=== PATIENT | female | born 1990 | race Caucasian/White ===

== ENCOUNTER 2018-03-08 07:00 | Inpatient (IN) | payer BC ==
[2018-03-08] MEDS ORDERED: Misoprostol 25 MCG (1/4 of 100 MCG) Tab ONE (07:26)
[2018-03-08] MEDS: Misoprostol 25 MCG (1/4 of 100 MCG) Tab VAG SCH ×3 (07:30→13:38)
[2018-03-08] MEDS ORDERED: Sodium Chloride 0.9% 10 ML Syringe FLUSH PRN (08:03)
[2018-03-08] MEDS ORDERED: Lidocaine 1% 50 ML MDV INJECT ONE (08:03)
[2018-03-08] MEDS ORDERED: Ondansetron 4 MG/2 ML SDV IVPUSH PRN (08:03)
[2018-03-08] MEDS ORDERED: Nalbuphine 20 MG/ML 1 ML Syringe IVPUSH PRN (08:03)
[2018-03-08] MEDS ORDERED: Lactated Ringers 1,000 ML IV SCH (08:15)
[2018-03-08] MEDS ORDERED: Oxytocin/Lactated Ringers 10 UNIT/1,000 ML BAG IV SCH ×2 (08:15)
--- NOTE | 2018-03-08 08:23 | PCM.LDHP ---
<Golden Millsen L - Last Filed: 03/08/18 07:58> L&D History of Present Illness - General Date of Service: 03/08/18 Admit Problem/Dx: Admission Diagnosis/Problem Admission Diagnosis/Problem Induction 03/08/18 07:58 Source of Information: Patient History Limitations: Reports: No Limitations - History of Present Illness Introduction:: 27 YO JAYLIN 03/15/2018 by LMP presents today for induction. Group B Strep at 36 wks GA POSITIVE. Rubella immune, Tdap given at 38 wks GA. HIV/HBV negative. No h/o MRSA or travel to zika-infested areas. U/S at 14 wks showed possible amniotic band that had apparently resolved by repeat U/S at 24 wks. H/ o at 38 wks GA, asthma. - Related Data Allergies/Adverse Reactions: Allergies Allergy/AdvReac Type Severity Reaction Status Date / Time cefaclor [From Ceclor] Allergy Itching Verified 05/20/16 17:08 [employer] clarithromycin [From Biaxin] Allergy Itching Verified 05/20/16 17:08 [employer] erythromycin base Allergy Itching Verified 05/20/16 17:08 [employer] Sulfa (Sulfonamide Allergy Itching Verified 05/20/16 17:08 [employer] Antibiotics) Past Medical History Respiratory History: Reports: Asthma (active, uses inhaler BID, has rescue MDI and also uses Nebulizer PRN) : 2 Para: 1 LMP (Approximate): Endocrine/Metabolic History: Reports: Diabetes, Gestational - Infectious Disease History 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 - Past Surgical History HEENT Surgical History: Reports: Adenoidectomy, Oral Surgery, Tonsillectomy Social & Family History - Family History Cardiac: Reports: Prior Cardiac Arrest GI: Reports: Pancreatitis OBGYN: Reports: Oncologic: Reports: Other (See Below) Other Oncologic Family History: melanoma L&D Exam - Exam General: Alert, Oriented HEENT: Conjunctiva Clear, Hearing Intact, Mucosa Moist & [place], Nares Patent, Normal Nasal Septum, PERRLA Neck: Supple, Trachea Midline Lungs: Clear to Auscultation, Normal Respiratory Effort Cardiovascular: Regular Rate, Regular Rhythm GI/Abdominal Exam: Normal Bowel Sounds, Non-Tender, No Organomegaly, No Abnormal Bruit, No Mass, Pelvis Stable Genitourinary: Normal external exam, Normal bimanual exam Extremities: Normal Inspection, Normal Range of Motion, Non-Tender, No Pedal Edema, Normal Capillary Refill Skin: Warm, Dry, Intact <Karlo Liz - Last Filed: 03/08/18 08:50> L&D History of Present Illness - General Admit Problem/Dx: Patient Status Order with Admit Dx/Problem 03/08/18 07:09 Patient Status [ADT] Routine Admission Diagnosis/Problem Admission Diagnosis/Problem H&P Review of Systems - Review of Systems: Review Of Systems: See Below L&D Exam - Exam Exam: See Below - Mai Score Mai Score Cervix Position: Posterior Mai Score Consistency: Soft Mai Score Effacement: 0-30% Mai Score Dilation: Closed Mai Score Infant's Station: -3 Mai Score Total: 2 - Problem List (1) 39 weeks gestation of SNOMED Code(s): 96396589 ICD Code: Z3A.39 - 39 WEEKS GESTATION OF Status: Acute Current Visit: Yes (2) GBS carrier SNOMED Code(s): 4802602456231 ICD Code: Z22.330 - CARRIER OF GROUP B STREPTOCOCCUS Status: Acute Current Visit: Yes Problem List Initiated/Reviewed/Updated: No Orders Last 24hrs: Active Orders 24 hr Category Date Time Status Patient Status [ADT] Routine ADT 03/08/18 07:09 Active Activity as Tolerated [RC] PFP Care 03/08/18 08:03 Active Communication Order [RC] ASDIRECTED Care 03/08/18 08:03 Active Heart Tones [RC] ASDIRECTED Care 03/08/18 08:04 Active Non Stress Test [RC] PER UNIT ROUTINE Care 03/08/18 08:03 Active Notify Provider [RC] PFP Care 03/08/18 08:03 Active Notify Provider [RC] PRN Care 03/08/18 08:03 Active Peripheral IV Care [RC] . DIRECTED Care 03/08/18 08:04 Active Vital Signs [RC] PER UNIT ROUTINE Care 03/08/18 08:03 Active Regular Diet [DIET] Diet 03/08/18 Breakfast Active CBC WITH AUTO DIFF [HEME] Stat Lab 03/08/18 08:03 Ordered RAPID PLASMA REAGIN,RPR [CHEM] Routine Lab 03/08/18 08:03 Ordered Ampicillin 1 gm Med 03/08/18 12:30 Active Sodium Chloride 0.9% [Normal Saline] 100 ml IV Q4H Ampicillin 2 gm Med 03/08/18 08:30 Active Sodium Chloride 0.9% [Normal Saline] 100 ml IV ONETIME Lactated Ringers [Ringers, Lactated] 1,000 ml Med 03/08/18 08:15 Active IV ASDIRECTED Nalbuphine [Nubain] Med 03/08/18 08:03 Active 10 mg IVPUSH Q2H PRN Ondansetron [Zofran] Med 03/08/18 08:03 Active 4 mg IVPUSH Q4H PRN Oxytocin/Lactated Ringers [Pitocin in LR 10 Units/1,000 Med 03/08/18 08:15 Active ML] 10 unit in 1,000 ml IV .CONTINUOUS Oxytocin/Lactated Ringers [Pitocin in LR 10 Units/1,000 Med 03/08/18 08:15 Active ML] 10 unit in 1,000 ml IV TITRATE Sodium Chloride 0.9% [Saline Flush] Med 03/08/18 08:03 Active 10 ml FLUSH ASDIRECTED PRN miSOPROStol [Cytotec] Med 03/08/18 07:30 Active 25 mcg VAG Q3H Electronic Heart Tones Ext w TOCO [WOMSER] Ot 03/08/18 08:03 Ordered Routine Electronic Heart Tones Internal [WOMSER] Per Unit Ot 03/08/18 08:03 Ordered Routine Peripheral IV Insertion Adult [OM.PC] Routine Ot 03/08/18 08:03 Ordered Resuscitation Status Routine Resus Stat 03/08/18 08:03 Ordered Medication Orders Ampicillin Sodium 2 gm/ Sodium (Chloride) 100 mls @ 200 mls/hr IV ONETIME ONE Stop: 03/08/18 08:59 Last Admin: 03/08/18 08:40 Dose: 200 mls/hr Ampicillin Sodium 1 gm/ Sodium (Chloride) 100 mls @ 200 mls/hr IV Q4H JUANY Lactated Ringer's (Ringers, Lactated) 1,000 mls @ 100 mls/hr IV ASDIRECTED JUANY Last Admin: 03/08/18 08:40 Dose: 100 mls/hr Oxytocin/Lactated Ringer's (Pitocin In Lr 10 Units/1,000 Ml) 10 unit in 1,000 mls @ 500 mls/hr IV .CONTINUOUS JUANY; Protocol Oxytocin/Lactated Ringer's (Pitocin In Lr 10 Units/1,000 Ml) 10 unit in 1,000 mls @ 12 mls/hr IV TITRATE JUANY; Protocol Misoprostol (Cytotec) 25 mcg VAG Q3H JUANY Stop: 03/08/18 13:31 Last Admin: 03/08/18 07:30 Dose: 25 mcg Nalbuphine HCl (Nubain) 10 mg IVPUSH Q2H PRN PRN Reason: pain Ondansetron HCl (Zofran) 4 mg IVPUSH Q4H PRN PRN Reason: Nausea/Vomiting Sodium Chloride (Saline Flush) 10 ml FLUSH ASDIRECTED PRN PRN Reason: Keep Vein Open Assessment/Plan Comment:: Plan induction and delivery
[2018-03-08] MEDS ORDERED: Ampicillin 2 GM in Sodium Chloride 0.9% 100 ML IV ONE (08:30)
[2018-03-08] MEDS: Ampicillin 1 GM in Sodium Chloride 0.9% 100 ML IV SCH ×2 (12:24→16:45)
--- NOTE | 2018-03-08 12:34 | PCM.SN ---
- Free Text/Narrative Note: 03/08/2019 1230 cervix 1 cm, 60 %, soft, posterior, vertex -3 Cat I FHR, Had second Cytotec at 1030.
--- NOTE | 2018-03-08 14:45 | PCM.SN ---
- Free Text/Narrative Note: 1440 03/08/18 Cervix 2 cm, 60 % effaced, soft, posterior, Cat I FHR before and after amniotomy performed at 1440, clear fluid.
--- NOTE | 2018-03-08 18:23 | PCM.SN ---
- Free Text/Narrative Note: 1820 03/08/2018 Cervix 8 cm, 90%, soft, anterior, cephalic -1. Cat I FHR.
--- NOTE | 2018-03-08 19:24 | PCM.DEL ---
L & D Note - General Info Date of Service: 03/08/18 Mother's Due Date: 03/18/18 - Delivery Note Labor: Spontaneous, Augmented by ARM Cervical Ripening Method: Misoprostil (25 mcg q3h x3 total) Delivery Outcome: Livebirth (female liveborn at 1858 hrs.on Wednesdayunder no anesthesia over no episiotomy right occiput anterior Apgars 8/9 weight 3230 g/7 pounds 1.9 ounce) Delivery Method: Spontaneous Vaginal Delivery-Single Infant Delivery Mode: Spontaneous Presentation: Right Occiput Anterior (BOBBY) Nuchal Cord: None Prep: Povidone-Iodine (Betadine Anesthesia Type: None Episiotomy Type: None Laceration: None Placenta: Intact, Spontaneous (elivered at 1908 hrs. on Wednesday03/08/18 intact eccentric cord insertion discarded) Cord: 3 Vessels Estimated Blood Loss: 250 Resuscitation Needed: No : Suctioned, Bulb Syringe, Stimulated, Warmed, [place] Used, Warmer Used Provider: Karlo Liz Score 1 min: 8 Score 5 min: 9 - General Info Date of Service: 03/08/18 Functional Status: Reports: Pain Controlled - Review of Systems General: Reports: No Symptoms HEENT: Reports: No Symptoms Pulmonary: Reports: No Symptoms Cardiovascular: Reports: No Symptoms Gastrointestinal: Reports: No Symptoms Genitourinary: Reports: No Symptoms Musculoskeletal: Reports: No Symptoms Skin: Reports: No Symptoms Neurological: Reports: No Symptoms Psychiatric: Reports: No Symptoms - Patient Data Weight - Most Recent: 228 lb 4.8 oz I&O - Last 24 Hours: Intake & Output 03/08/18 03/08/18 03/08/18 06:59 14:59 22:59 Intake Total 240 Balance 240 Lab Results Last 24 Hours: Laboratory Results - last 24 hr 03/08/18 Range/Units 08:45 WBC 14.59 H (3.98-10.04) K/mm3 RBC 4.40 (3.98-5.22) M/mm3 Hgb 10.6 L (11.2-15.7) gm/L Hct 34.3 (34.1-44.9) % MCV 78.0 L (79.4-94.8) fl MCH 24.1 L (25.6-32.2) pg MCHC 30.9 L (32.2-35.5) g/dl RDW Std Deviation 40.9 (36.4-46.3) fL Plt Count 239 (182-369) K/mm3 MPV 11.5 (9.4-12.3) fl Neut % (Auto) 73.5 H (34.0-71.1) % Lymph % (Auto) 16.8 L (19.3-51.7) % [place] % (Auto) 6.9 (4.7-12.5) % Eos % (Auto) 2.0 (0.7-5.8) Baso % (Auto) 0.1 (0.1-1.2) % Neut # (Auto) 10.72 H (1.56-6.13) K/mm3 Lymph # (Auto) 2.45 (1.18-3.74) K/mm3 [place] # (Auto) 1.01 H (0.24-0.36) K/mm3 Eos # (Auto) 0.29 (0.04-0.36) K/mm3 Baso # (Auto) 0.02 (0.01-0.08) K/mm3 Med Orders - Current: Current Medications Ampicillin Sodium 1 gm/ Sodium (Chloride) 100 mls @ 200 mls/hr IV Q4H JUANY Last Admin: 03/08/18 16:45 Dose: 200 mls/hr Lactated Ringer's (Ringers, Lactated) 1,000 mls @ 100 mls/hr IV ASDIRECTED JUANY Last Admin: 03/08/18 08:40 Dose: 100 mls/hr Oxytocin/Lactated Ringer's (Pitocin In Lr 10 Units/1,000 Ml) 10 unit in 1,000 mls @ 500 mls/hr IV .CONTINUOUS JUANY; Protocol Oxytocin/Lactated Ringer's (Pitocin In Lr 10 Units/1,000 Ml) 10 unit in 1,000 mls @ 12 mls/hr IV TITRATE JUANY; Protocol Nalbuphine HCl (Nubain) 10 mg IVPUSH Q2H PRN PRN Reason: pain Last Admin: 03/08/18 16:43 Dose: 10 mg Ondansetron HCl (Zofran) 4 mg IVPUSH Q4H PRN PRN Reason: Nausea/Vomiting Sodium Chloride (Saline Flush) 10 ml FLUSH ASDIRECTED PRN PRN Reason: Keep Vein Open Discontinued Medications Ampicillin Sodium 2 gm/ Sodium (Chloride) 100 mls @ 200 mls/hr IV ONETIME ONE Stop: 03/08/18 08:59 Last Admin: 03/08/18 08:40 Dose: 200 mls/hr Lidocaine HCl (Xylocaine 1%) 50 ml INJECT ONETIME ONE Stop: 03/08/18 08:04 Misoprostol (Cytotec) Confirm Administered Dose 25 mcg .ROUTE .STK-MED ONE Stop: 03/08/18 07:27 Last Admin: 03/08/18 08:42 Dose: Not Given Misoprostol (Cytotec) 25 mcg VAG Q3H JUANY Stop: 03/08/18 13:31 Last Admin: 03/08/18 13:38 Dose: 25 mcg - Problem List & Annotations (1) 39 weeks gestation of SNOMED Code(s): 72201193 Code(s): Z3A.39 - 39 WEEKS GESTATION OF Status: Acute Current Visit: Yes (2) GBS carrier SNOMED Code(s): 5235727138198 Code(s): Z22.330 - CARRIER OF GROUP B STREPTOCOCCUS Status: Acute Current Visit: Yes (3) Normal delivery at term SNOMED Code(s): 82257001 Code(s): O80 - ENCOUNTER FOR FULL-TERM UNCOMPLICATED DELIVERY Status: Acute Current Visit: Yes - Problem List Review Problem List Initiated/Reviewed/Updated: No - My Orders Last 24 Hours: My Active Orders 03/08/18 07:09 Patient Status [ADT] Routine 03/08/18 08:03 Activity as Tolerated [RC] PFP Communication Order [RC] ASDIRECTED Notify Provider [RC] PFP Notify Provider [RC] PRN Vital Signs [RC] PER UNIT ROUTINE Nalbuphine [Nubain] 10 mg IVPUSH Q2H PRN Ondansetron [Zofran] 4 mg IVPUSH Q4H PRN Sodium Chloride 0.9% [Saline Flush] 10 ml FLUSH ASDIRECTED PRN Electronic Heart Tones Ext w TOCO [WOMSER] Routine Electronic Heart Tones Internal [WOMSER] Per Unit Routine Peripheral IV Insertion Adult [OM.PC] Routine Resuscitation Status Routine 03/08/18 08:04 Heart Tones [RC] ASDIRECTED Peripheral IV Care [RC] . DIRECTED 03/08/18 08:15 Lactated Ringers [Ringers, Lactated] 1,000 ml IV ASDIRECTED Oxytocin/Lactated Ringers [Pitocin in LR 10 Units/1,000 ML] 10 unit in 1,000 ml IV .CONTINUOUS Oxytocin/Lactated Ringers [Pitocin in LR 10 Units/1,000 ML] 10 unit in 1,000 ml IV TITRATE 03/08/18 08:45 RAPID PLASMA REAGIN,RPR [CHEM] Routine 03/08/18 12:30 Ampicillin 1 gm Sodium Chloride 0.9% [Normal Saline] 100 ml IV Q4H 03/08/18 Breakfast Regular Diet [DIET] - Plan Plan:: Plan induction and delivery
[2018-03-08] MEDS ORDERED: Docusate Sodium 100 MG Cap PO PRN (19:33)
[2018-03-08] MEDS ORDERED: Acetaminophen 325 MG Tab PO PRN (19:33)
[2018-03-08] MEDS ORDERED: Benzocaine/Menthol 20%-0.5% Spray 56 GM Canister TOP PRN (19:33)
[2018-03-08] MEDS ORDERED: Witch Hazel Medicated Pads 100/Jar TOP PRN (19:33)
[2018-03-08] MEDS ORDERED: Lanolin 100% Cream 7 GM Tube TOP PRN (19:33)
[2018-03-08] MEDS: Ibuprofen 600 MG Tab PO PRN (21:36)
[2018-03-09] MEDS: Ibuprofen 600 MG Tab PO PRN ×2 (08:14→22:04)
--- NOTE | 2018-03-09 09:23 | PCM.SN ---
- Free Text/Narrative Note: Afebrile. Chest clear. Normal heart sounds. Uterus involuting normally. Abdomen soft. No heavy vaginal bleeding. No leg cramping.
--- NOTE | 2018-03-10 08:59 | PCM.DCSUM1 ---
Discharge Summary - Hospital Course Free Text/Narrative:: [facility] LIVE L/D Delivery Note Patient Name: ERASTO PENN Date of : 89 Patient Status: Inpatient Attending Provider: Karlo Liz Date: 03/08/18 19:17 Initialization Date: 03/08/18 19:17 L & D Note - General Info Date of Service: 03/08/18 Mother's Due Date: 03/18/18 - Delivery Note Labor: Spontaneous, Augmented by ARM Cervical Ripening Method: Misoprostil (25 mcg q3h x3 total) Delivery Outcome: Livebirth (female liveborn at 1858 hrs.on Wednesdayunder no anesthesia over no episiotomy right occiput anterior Apgars 8/9 weight 3230 g/7 pounds 1.9 ounce) Delivery Method: Spontaneous Vaginal Delivery-Single Infant Delivery Mode: Spontaneous Presentation: Right Occiput Anterior (BOBBY) Nuchal Cord: None Prep: Povidone-Iodine (Betadine Anesthesia Type: None Episiotomy Type: None Laceration: None Placenta: Intact, Spontaneous (elivered at 1908 hrs. on Wednesday03/08/18 intact eccentric cord insertion discarded) Cord: 3 Vessels Estimated Blood Loss: 250 Resuscitation Needed: No : Suctioned, Bulb Syringe, Stimulated, Warmed, [place] Used, Warmer Used Provider: Karlo Liz Score 1 min: 8 Score 5 min: 9 - General Info Date of Service: 03/08/18 Functional Status: Reports: Pain Controlled - Review of Systems General: Reports: No Symptoms HEENT: Reports: No Symptoms Pulmonary: Reports: No Symptoms Cardiovascular: Reports: No Symptoms Gastrointestinal: Reports: No Symptoms Genitourinary: Reports: No Symptoms Musculoskeletal: Reports: No Symptoms Skin: Reports: No Symptoms Neurological: Reports: No Symptoms Psychiatric: Reports: No Symptoms - Patient Data Weight - Most Recent: 228 lb 4.8 oz I&O - Last 24 Hours: Intake & Output 03/08/18 03/08/18 03/08/18 06:59 14:59 22:59 Intake Total 240 Balance 240 Lab Results Last 24 Hours: Laboratory Results - last 24 hr 03/08/18 Range/Units 08:45 WBC 14.59 H (3.98-10.04) K/mm3 RBC 4.40 (3.98-5.22) M/mm3 Hgb 10.6 L (11.2-15.7) gm/L Hct 34.3 (34.1-44.9) % MCV 78.0 L (79.4-94.8) fl MCH 24.1 L (25.6-32.2) pg MCHC 30.9 L (32.2-35.5) g/dl RDW Std Deviation 40.9 (36.4-46.3) fL Plt Count 239 (182-369) K/mm3 MPV 11.5 (9.4-12.3) fl Neut % (Auto) 73.5 H (34.0-71.1) % Lymph % (Auto) 16.8 L (19.3-51.7) % [place] % (Auto) 6.9 (4.7-12.5) % Eos % (Auto) 2.0 (0.7-5.8) Baso % (Auto) 0.1 (0.1-1.2) % Neut # (Auto) 10.72 H (1.56-6.13) K/mm3 Lymph # (Auto) 2.45 (1.18-3.74) K/mm3 [place] # (Auto) 1.01 H (0.24-0.36) K/mm3 Eos # (Auto) 0.29 (0.04-0.36) K/mm3 Baso # (Auto) 0.02 (0.01-0.08) K/mm3 Med Orders - Current: Current Medications Ampicillin Sodium 1 gm/ Sodium (Chloride) 100 mls @ 200 mls/hr IV Q4H JUANY Last Admin: 03/08/18 16:45 Dose: 200 mls/hr Lactated Ringer's (Ringers, Lactated) 1,000 mls @ 100 mls/hr IV ASDIRECTED JUANY Last Admin: 03/08/18 08:40 Dose: 100 mls/hr Oxytocin/Lactated Ringer's (Pitocin In Lr 10 Units/1,000 Ml) 10 unit in 1,000 mls @ 500 mls/hr IV .CONTINUOUS JUANY; Protocol Oxytocin/Lactated Ringer's (Pitocin In Lr 10 Units/1,000 Ml) 10 unit in 1,000 mls @ 12 mls/hr IV TITRATE JUANY; Protocol Nalbuphine HCl (Nubain) 10 mg IVPUSH Q2H PRN PRN Reason: pain Last Admin: 03/08/18 16:43 Dose: 10 mg Ondansetron HCl (Zofran) 4 mg IVPUSH Q4H PRN PRN Reason: Nausea/Vomiting Sodium Chloride (Saline Flush) 10 ml FLUSH ASDIRECTED PRN PRN Reason: Keep Vein Open Discontinued Medications Ampicillin Sodium 2 gm/ Sodium (Chloride) 100 mls @ 200 mls/hr IV ONETIME ONE Stop: 03/08/18 08:59 Last Admin: 03/08/18 08:40 Dose: 200 mls/hr Lidocaine HCl (Xylocaine 1%) 50 ml INJECT ONETIME ONE Stop: 03/08/18 08:04 Misoprostol (Cytotec) Confirm Administered Dose 25 mcg .ROUTE .STK-MED ONE Stop: 03/08/18 07:27 Last Admin: 03/08/18 08:42 Dose: Not Given Misoprostol (Cytotec) 25 mcg VAG Q3H JUANY Stop: 03/08/18 13:31 Last Admin: 03/08/18 13:38 Dose: 25 mcg - Problem List & Annotations (1) 39 weeks gestation of SNOMED Code(s): 42623106 Code(s): Z3A.39 - 39 WEEKS GESTATION OF Status: Acute Current Visit: Yes (2) GBS carrier SNOMED Code(s): 9380163983918 Code(s): Z22.330 - CARRIER OF GROUP B STREPTOCOCCUS Status: Acute Current Visit: Yes (3) Normal delivery at term SNOMED Code(s): 72492813 Code(s): O80 - ENCOUNTER FOR FULL-TERM UNCOMPLICATED DELIVERY Status: Acute Current Visit: Yes - Problem List Review Problem List Initiated/Reviewed/Updated: No - My Orders Last 24 Hours: My Active Orders 03/08/18 07:09 Patient Status [ADT] Routine 03/08/18 08:03 Activity as Tolerated [RC] PFP Communication Order [RC] ASDIRECTED Notify Provider [RC] PFP Notify Provider [RC] PRN Vital Signs [RC] PER UNIT ROUTINE Nalbuphine [Nubain] 10 mg IVPUSH Q2H PRN Ondansetron [Zofran] 4 mg IVPUSH Q4H PRN Sodium Chloride 0.9% [Saline Flush] 10 ml FLUSH ASDIRECTED PRN Electronic Heart Tones Ext w TOCO [WOMSER] Routine Electronic Heart Tones Internal [WOMSER] Per Unit Routine Peripheral IV Insertion Adult [OM.PC] Routine Resuscitation Status Routine 03/08/18 08:04 Heart Tones [RC] ASDIRECTED Peripheral IV Care [RC] . DIRECTED 03/08/18 08:15 Lactated Ringers [Ringers, Lactated] 1,000 ml IV ASDIRECTED Oxytocin/Lactated Ringers [Pitocin in LR 10 Units/1,000 ML] 10 unit in 1,000 ml IV .CONTINUOUS Oxytocin/Lactated Ringers [Pitocin in LR 10 Units/1,000 ML] 10 unit in 1,000 ml IV TITRATE 03/08/18 08:45 RAPID PLASMA REAGIN,RPR [CHEM] Routine 03/08/18 12:30 Ampicillin 1 gm Sodium Chloride 0.9% [Normal Saline] 100 ml IV Q4H 03/08/18 Breakfast Regular Diet [DIET] - Plan Plan:: Plan induction and delivery HPI Initial Comments: [facility] LIVE L/D Delivery Note Patient Name: ERASTO PENN Date of : 89 Patient Status: Inpatient Attending Provider: Karlo Liz Date: 03/08/18 19:17 Initialization Date: 03/08/18 19:17 L & D Note - General Info Date of Service: 03/08/18 Mother's Due Date: 03/18/18 - Delivery Note Labor: Spontaneous, Augmented by ARM Cervical Ripening Method: Misoprostil (25 mcg q3h x3 total) Delivery Outcome: Livebirth (female liveborn at 1858 hrs.on Wednesdayunder no anesthesia over no episiotomy right occiput anterior Apgars 8/9 weight 3230 g/7 pounds 1.9 ounce) Delivery Method: Spontaneous Vaginal Delivery-Single Delivery Mode: Spontaneous Presentation: Right Occiput Anterior (BOBBY) Nuchal Cord: None Prep: Povidone-Iodine (Betadine Anesthesia Type: None Episiotomy Type: None Laceration: None Placenta: Intact, Spontaneous (elivered at 1908 hrs. on Wednesday03/08/18 intact eccentric cord insertion discarded) Cord: 3 Vessels Estimated Blood Loss: 250 Resuscitation Needed: No [place]: Suctioned, Bulb Syringe, Stimulated, Warmed, [place] Used, Warmer Used Provider: Karlo Liz Score 1 min: 8 Score 5 min: 9 - General Info Date of Service: 03/08/18 Functional Status: Reports: Pain Controlled - Review of Systems General: Reports: No Symptoms HEENT: Reports: No Symptoms Pulmonary: Reports: No Symptoms Cardiovascular: Reports: No Symptoms Gastrointestinal: Reports: No Symptoms Genitourinary: Reports: No Symptoms Musculoskeletal: Reports: No Symptoms Skin: Reports: No Symptoms Neurological: Reports: No Symptoms Psychiatric: Reports: No Symptoms - Patient Data Weight - Most Recent: 228 lb 4.8 oz I&O - Last 24 Hours: Intake & Output 03/08/18 03/08/18 03/08/18 06:59 14:59 22:59 Intake Total 240 Balance 240 Lab Results Last 24 Hours: Laboratory Results - last 24 hr 03/08/18 Range/Units 08:45 WBC 14.59 H (3.98-10.04) K/mm3 RBC 4.40 (3.98-5.22) M/mm3 Hgb 10.6 L (11.2-15.7) gm/L Hct 34.3 (34.1-44.9) % MCV 78.0 L (79.4-94.8) fl MCH 24.1 L (25.6-32.2) pg MCHC 30.9 L (32.2-35.5) g/dl RDW Std Deviation 40.9 (36.4-46.3) fL Plt Count 239 (182-369) K/mm3 MPV 11.5 (9.4-12.3) fl Neut % (Auto) 73.5 H (34.0-71.1) % Lymph % (Auto) 16.8 L (19.3-51.7) % [place] % (Auto) 6.9 (4.7-12.5) % Eos % (Auto) 2.0 (0.7-5.8) Baso % (Auto) 0.1 (0.1-1.2) % Neut # (Auto) 10.72 H (1.56-6.13) K/mm3 Lymph # (Auto) 2.45 (1.18-3.74) K/mm3 [place] # (Auto) 1.01 H (0.24-0.36) K/mm3 Eos # (Auto) 0.29 (0.04-0.36) K/mm3 Baso # (Auto) 0.02 (0.01-0.08) K/mm3 Med Orders - Current: Current Medications Ampicillin Sodium 1 gm/ Sodium (Chloride) 100 mls @ 200 mls/hr IV Q4H JUANY Last Admin: 03/08/18 16:45 Dose: 200 mls/hr Lactated Ringer's (Ringers, Lactated) 1,000 mls @ 100 mls/hr IV ASDIRECTED JUANY Last Admin: 03/08/18 08:40 Dose: 100 mls/hr Oxytocin/Lactated Ringer's (Pitocin In Lr 10 Units/1,000 Ml) 10 unit in 1,000 mls @ 500 mls/hr IV .CONTINUOUS JUANY; Protocol Oxytocin/Lactated Ringer's (Pitocin In Lr 10 Units/1,000 Ml) 10 unit in 1,000 mls @ 12 mls/hr IV TITRATE JUANY; Protocol Nalbuphine HCl (Nubain) 10 mg IVPUSH Q2H PRN PRN Reason: pain Last Admin: 03/08/18 16:43 Dose: 10 mg Ondansetron HCl (Zofran) 4 mg IVPUSH Q4H PRN PRN Reason: Nausea/Vomiting Sodium Chloride (Saline Flush) 10 ml FLUSH ASDIRECTED PRN PRN Reason: Keep Vein Open Discontinued Medications Ampicillin Sodium 2 gm/ Sodium (Chloride) 100 mls @ 200 mls/hr IV ONETIME ONE Stop: 03/08/18 08:59 Last Admin: 03/08/18 08:40 Dose: 200 mls/hr Lidocaine HCl (Xylocaine 1%) 50 ml INJECT ONETIME ONE Stop: 03/08/18 08:04 Misoprostol (Cytotec) Confirm Administered Dose 25 mcg .ROUTE .STK-MED ONE Stop: 03/08/18 07:27 Last Admin: 03/08/18 08:42 Dose: Not Given Misoprostol (Cytotec) 25 mcg VAG Q3H JUANY Stop: 03/08/18 13:31 Last Admin: 03/08/18 13:38 Dose: 25 mcg - Problem List & Annotations (1) 39 weeks gestation of SNOMED Code(s): 07799090 Code(s): Z3A.39 - 39 WEEKS GESTATION OF Status: Acute Current Visit: Yes (2) GBS carrier SNOMED Code(s): 4116767688278 Code(s): Z22.330 - CARRIER OF GROUP B STREPTOCOCCUS Status: Acute Current Visit: Yes (3) Normal delivery at term SNOMED Code(s): 20320407 Code(s): O80 - ENCOUNTER FOR FULL-TERM UNCOMPLICATED DELIVERY Status: Acute Current Visit: Yes - Problem List Review Problem List Initiated/Reviewed/Updated: No - My Orders Last 24 Hours: My Active Orders 03/08/18 07:09 Patient Status [ADT] Routine 03/08/18 08:03 Activity as Tolerated [RC] PFP Communication Order [RC] ASDIRECTED Notify Provider [RC] PFP Notify Provider [RC] PRN Vital Signs [RC] PER UNIT ROUTINE Nalbuphine [Nubain] 10 mg IVPUSH Q2H PRN Ondansetron [Zofran] 4 mg IVPUSH Q4H PRN Sodium Chloride 0.9% [Saline Flush] 10 ml FLUSH ASDIRECTED PRN Electronic Heart Tones Ext w TOCO [WOMSER] Routine Electronic Heart Tones Internal [WOMSER] Per Unit Routine Peripheral IV Insertion Adult [OM.PC] Routine Resuscitation Status Routine 03/08/18 08:04 Heart Tones [RC] ASDIRECTED Peripheral IV Care [RC] . DIRECTED 03/08/18 08:15 Lactated Ringers [Ringers, Lactated] 1,000 ml IV ASDIRECTED Oxytocin/Lactated Ringers [Pitocin in LR 10 Units/1,000 ML] 10 unit in 1,000 ml IV .CONTINUOUS Oxytocin/Lactated Ringers [Pitocin in LR 10 Units/1,000 ML] 10 unit in 1,000 ml IV TITRATE 03/08/18 08:45 RAPID PLASMA REAGIN,RPR [CHEM] Routine 03/08/18 12:30 Ampicillin 1 gm Sodium Chloride 0.9% [Normal Saline] 100 ml IV Q4H 03/08/18 Breakfast Regular Diet [DIET] - Plan Plan:: Plan induction and delivery Brief History: [facility] LIVE . L/D Delivery Note. Patient Name: ERASTO PENN Record Number: [id number]. Date of : Patient Status: Inpatient. [id number]. Date: 03/08/18 19:17Initialization Date: 03/08/18 19:17. L & D Note. - General Info. Date of Service: 03/08/18. Mother's Due Date: 03/18/18. - Delivery Note. Labor: Spontaneous, Augmented by ARM. Cervical Ripening Method: Misoprostil (25 mcg q3h x3 total). Delivery Outcome: Livebirth (female liveborn at 1858 hrs.on Wednesday03/08/18under no anesthesia over no episiotomy right occiput anterior Apgars 8/9 weight 3230 g/7 pounds 1.9 ounce). Infant Delivery Method: Spontaneous Vaginal Delivery-Single. Infant Delivery Mode: Spontaneous. Presentation: Right Occiput Anterior (BOBBY). Nuchal Cord: None. Prep: Povidone-Iodine (Betadine. Anesthesia Type: None. Episiotomy Type: None. Laceration: None. Placenta: Intact, Spontaneous ( elivered at 1908 hrs. on Wednesday03/08/18 intact eccentric cord insertion discarded). Cord: 3 Vessels. Estimated Blood Loss: 250. Resuscitation Needed : No. [place]: Suctioned, Bulb Syringe, Stimulated, Warmed, [place] Used, Warmer Used. Provider: Karlo Liz. Score 1 min: 8. Score 5 min: 9. - General Info. Date of Service: 03/08/18. Functional Status: Reports: Pain Controlled. - Review of Systems. General: Reports: No Symptoms. HEENT: Reports: No Symptoms. Pulmonary: Reports: No Symptoms. Cardiovascular: Reports: No Symptoms. Gastrointestinal: Reports: No Symptoms. Genitourinary: Reports: No Symptoms. Musculoskeletal: Reports: No Symptoms. Skin: Reports: No Symptoms. Neurological: Reports: No Symptoms. Psychiatric: Reports: No Symptoms. - Patient Data. Weight - Most Recent: 228 lb 4.8 oz. I& O - Last 24 Hours: Intake & Output. 03/08/1808. 06:[id number]:[id number]: 59. Intake [id number]. [id number]. Lab Results Last 24 Hours: Laboratory Results - last 24 hr. 03/08/18Range/Units. 08:45. WBC 14.59 H (3.98-10.04) K /mm3. RBC 4.40 (3.98-5.22) M/mm3. Hgb 10.6 L (11.2-15.7) gm/L. Hct 34.3 ( 34.1-44.9) %. MCV 78.0 L (79.4-94.8) fl. MCH 24.1 L (25.6-32.2) pg. MCHC 30.9 L (32.2-35.5) g/dl. RDW Std Deviation 40.9 (36.4-46.3) fL. Plt Count 239 (182-369) K/mm3. MPV 11.5 (9.4-12.3) fl. Neut % (Auto) 73.5 H (34.0-71.1 ) %. Lymph % (Auto) 16.8 L (19.3-51.7) %. [place] % (Auto) 6.9 (4.7-12.5) %. Eos % (Auto) 2.0 (0.7-5.8). Baso % (Auto) 0.1 (0.1-1.2) %. Neut # (Auto) 10.72 H (1.56-6.13) K/mm3. Lymph # (Auto) 2.45 (1.18-3.74) K/mm3. [place] # ( Auto) 1.01 H (0.24-0.36) K/mm3. Eos # (Auto) 0.29 (0.04-0.36) K/mm3. Baso # (Auto) 0.02 (0.01-0.08) K/mm3. Med Orders - Current: Current Medications. Ampicillin Sodium 1 gm/ Sodium (Chloride) 100 mls @ 200 mls/hr IV Q4H JUANY. Last Admin: 03/08/18 16:45 Dose: 200 mls/hr. Lactated Ringer's (Ringers, Lactated) 1,000 mls @ 100 mls/hr IV ASDIRECTED JUANY. Last Admin: 03/08/18 08: 40 Dose: 100 mls/hr. Oxytocin/Lactated Ringer's (Pitocin In Lr 10 Units/1,000 Ml) 10 unit in 1,000 mls @ 500 mls/hr IV .CONTINUOUS JUANY; Protocol. Oxytocin/ Lactated Ringer's (Pitocin In Lr 10 Units/1,000 Ml) 10 unit in 1,000 mls @ 12 mls/hr IV TITRATE JUANY; Protocol. Nalbuphine HCl (Nubain) 10 mg IVPUSH Q2H PRN. PRN Reason: pain. Last Admin: 03/08/18 16:43 Dose: 10 mg. Ondansetron HCl (Zofran) 4 mg IVPUSH Q4H PRN. PRN Reason: Nausea/Vomiting. Sodium Chloride (Saline Flush) 10 ml FLUSH ASDIRECTED PRN. PRN Reason: Keep Vein Open. Discontinued Medications. Ampicillin Sodium 2 gm/ Sodium (Chloride) 100 mls @ 200 mls/hr IV ONETIME ONE. Stop: 03/08/18 08:59. Last Admin: 08:40 Dose: 200 mls/hr. Lidocaine HCl (Xylocaine 1%) 50 ml INJECT ONETIME ONE. Stop: 03/08/18 08:04. Misoprostol (Cytotec) Confirm Administered Dose 25 mcg .ROUTE .STK-MED ONE. Stop: 03/08/18 07:27. Last Admin: 03/08/18 08:42 Dose : Not Given. Misoprostol (Cytotec) 25 mcg VAG Q3H JUANY. Stop: 03/08/18 13: 31. Last Admin: 03/08/18 13:38 Dose: 25 mcg. - Problem List & Annotations. ( 1) 39 weeks gestation of . SNOMED Code(s): 34040660. Code(s): Z3A.39 - 39 WEEKS GESTATION OF Status: Acute Current Visit: Yes. (2) GBS carrier. SNOMED Code(s): 6449025833190. Code(s): Z22.330 - CARRIER OF GROUP B STREPTOCOCCUS Status: Acute Current Visit: Yes. (3) Normal delivery at term. SNOMED Code(s): 26383653. Code(s): O80 - ENCOUNTER FOR FULL- TERM UNCOMPLICATED DELIVERY Status: Acute Current Visit: Yes. - Problem List Review. Problem List Initiated/Reviewed/Updated: No. - My Orders. Last 24 Hours: My Active Orders. 03/08/18 07:09. Patient Status [ADT] Routine. 08:03. Activity as Tolerated [RC] PFP. Communication Order [RC] ASDIRECTED. Notify Provider [RC] PFP. Notify Provider [RC] PRN. Vital Signs [ RC] PER UNIT ROUTINE. Nalbuphine [Nubain] 10 mg IVPUSH Q2H PRN. Ondansetron [Zofran] 4 mg IVPUSH Q4H PRN. Sodium Chloride 0.9% [Saline Flush] 10 ml FLUSH ASDIRECTED PRN. Electronic Heart Tones Ext w TOCO [WOMSER] Routine. Electronic Heart Tones Internal [WOMSER] Per Unit Routine. Peripheral IV Insertion Adult [OM.PC] Routine. Resuscitation Status Routine. 03/08/18 08:04. Heart Tones [RC] ASDIRECTED. Peripheral IV Care [RC] . DIRECTED. 03/08/18 08:15. Lactated Ringers [Ringers, Lactated] 1,000 ml IV ASDIRECTED. Oxytocin/Lactated Ringers [Pitocin in LR 10 Units/1,000 ML] 10 unit in 1,000 ml IV .CONTINUOUS. Oxytocin/Lactated Ringers [Pitocin in LR 10 Units/1,000 ML] 10 unit in 1,000 ml IV TITRATE. 03/08/18 08:45. RAPID PLASMA REAGIN,RPR [CHEM] Routine. 03/08/18 12:30. Ampicillin 1 gm Sodium Chloride 0.9% [Normal Saline] 100 ml IV Q4H. 03/08/18 Breakfast. Regular Diet [DIET]. - Plan. Plan:: Plan induction and delivery Diagnosis: Stroke: No - Discharge Data Discharge Date: 03/10/18 Discharge Disposition: Home, Self-Care 01 Condition: Good - Discharge Diagnosis/Problem(s) (1) 39 weeks gestation of SNOMED Code(s): 85582847 ICD Code: Z3A.39 - 39 WEEKS GESTATION OF Status: Acute Current Visit: Yes (2) GBS carrier SNOMED Code(s): 7773483859487 ICD Code: Z22.330 - CARRIER OF GROUP B STREPTOCOCCUS Status: Acute Current Visit: Yes (3) Normal delivery at term SNOMED Code(s): 50247967 ICD Code: O80 - ENCOUNTER FOR FULL-TERM UNCOMPLICATED DELIVERY Status: Acute Current Visit: Yes - Patient Summary/Data Complications: None Consults: None Hospital Course: Uneventful - Patient Instructions Diet: Usual Diet as Tolerated Driving: Do Not Drive (48 hours) Showering/Bathing: May Shower, No Tub Bathing/Swimming (6 weeks) Notify Provider of: Fever, Increased Pain, Swelling and Redness, Drainage, Nausea and/or Vomiting - Discharge Plan *PRESCRIPTION DRUG MONITORING PROGRAM REVIEWED*: Not Applicable *COPY OF PRESCRIPTION DRUG MONITORING REPORT IN PATIENT RONDA: Not Applicable Home Medications: Home Meds Acetaminophen [Tylenol] 650 mg PO Q4H PRN tablet 03/10/18 [Rx] Benzocaine/Menthol [Dermoplast Pain Relief [place]] 1 spray TOP ASDIRECTED PRN canister 03/10/18 [Rx] Docusate Sodium [Colace] 100 mg PO BID PRN cap 03/10/18 [Rx] Ibuprofen [Motrin] 600 mg PO Q4H PRN tablet 03/10/18 [Rx] Lanolin [Lansinoh HPA] 1 applic TOP ASDIRECTED PRN tube 03/10/18 [Rx] Witch Deisi [Tucks] 1 pad TOP ASDIRECTED PRN pad 03/10/18 [Rx] Referrals: Karlo Liz MD [Primary Care Provider] - (Return in 2 weeks for check.) - Discharge Summary/Plan Comment DC Time >30 min.: No - Patient Data Vitals - Most Recent: Last Vital Signs Temp 98.1 F 03/10/18 03:31 Pulse 57 L 03/10/18 03:31 Resp 14 03/10/18 03:31 BP 134/82 03/10/18 03:31 Pulse Ox 100 03/10/18 03:31 Weight - Most Recent: 228 lb 4.8 oz I&O - Last 24 hours: Intake & Output 03/09/18 03/10/18 03/10/18 22:59 06:59 14:59 Intake Total 0 Balance 0 Lab Results - Last 24 hrs: Laboratory Results - last 24 hr 03/08/18 Range/Units 08:45 RPR Non-reactive (NONREACTIVE) Med Orders - Current: Current Medications Acetaminophen (Tylenol) 650 mg PO Q4H PRN PRN Reason: mild pain or fever Benzocaine/Menthol (Dermoplast Pain Relief [place]) 0 gm TOP ASDIRECTED PRN PRN Reason: Perineal Comfort Measure Docusate Sodium (Colace) 100 mg PO BID PRN PRN Reason: Constipation Emollient Ointment (Lansinoh Hpa) 0 gm TOP ASDIRECTED PRN PRN Reason: Sore Nipples Ibuprofen (Motrin) 600 mg PO Q4H PRN PRN Reason: Mild pain or fever Last Admin: 03/09/18 22:04 Dose: 600 mg Witch Deisi (Tucks) 1 pad TOP ASDIRECTED PRN PRN Reason: Hemorrhoid pain Discontinued Medications Ampicillin Sodium 2 gm/ Sodium (Chloride) 100 mls @ 200 mls/hr IV ONETIME ONE Stop: 03/08/18 08:59 Last Admin: 03/08/18 08:40 Dose: 200 mls/hr Ampicillin Sodium 1 gm/ Sodium (Chloride) 100 mls @ 200 mls/hr IV Q4H JUANY Last Admin: 03/08/18 16:45 Dose: 200 mls/hr Lactated Ringer's (Ringers, Lactated) 1,000 mls @ 100 mls/hr IV ASDIRECTED JUANY Last Admin: 03/08/18 08:40 Dose: 100 mls/hr Oxytocin/Lactated Ringer's (Pitocin In Lr 10 Units/1,000 Ml) 10 unit in 1,000 mls @ 500 mls/hr IV .CONTINUOUS JUANY; Protocol Last Admin: 03/08/18 18:59 Dose: 500 mls/hr Oxytocin/Lactated Ringer's (Pitocin In Lr 10 Units/1,000 Ml) 10 unit in 1,000 mls @ 12 mls/hr IV TITRATE JUANY; Protocol Lidocaine HCl (Xylocaine 1%) 50 ml INJECT ONETIME ONE Stop: 03/08/18 08:04 Last Admin: 03/08/18 23:36 Dose: Not Given Misoprostol (Cytotec) Confirm Administered Dose 25 mcg .ROUTE .STK-MED ONE Stop: 08/28/18 07:27 Last Admin: 03/08/18 08:42 Dose: Not Given Misoprostol (Cytotec) 25 mcg VAG Q3H JUANY Stop: 03/08/18 13:31 Last Admin: 03/08/18 13:38 Dose: 25 mcg Nalbuphine HCl (Nubain) 10 mg IVPUSH Q2H PRN PRN Reason: pain Last Admin: 03/08/18 16:43 Dose: 10 mg Ondansetron HCl (Zofran) 4 mg IVPUSH Q4H PRN PRN Reason: Nausea/Vomiting Sodium Chloride (Saline Flush) 10 ml FLUSH ASDIRECTED PRN PRN Reason: Keep Vein Open
[2018-03-10 09:22] VITALS: BP 120/75
== END 2018-03-10 09:35 | disposition home or self-care (01) | DRG 560 ==
LOC: JD.OB 07:00 → OBSVTOIN 18:58 → JD.OB 18:58
PROVIDERS: ADMIT Obstetrics & Gynecology; ATTEND Obstetrics & Gynecology
PROC: 10907ZC Drainage of Amniotic Fluid, Therapeutic from Products of Conception, Via Natural or Artificial Opening (ICD-10-PCS; principal; 2018-03-08)
PROC: 10E0XZZ Delivery of Products of Conception, External Approach (ICD-10-PCS; principal; 2018-03-08)
PROC: 3E0P7VZ Introduction of Hormone into Female Reproductive, Via Natural or Artificial Opening (ICD-10-PCS; principal; 2018-03-08)
DX: O98.82 Other maternal infectious and parasitic diseases complicating childbirth (principal); B95.1 Streptococcus, group B, as the cause of diseases classified elsewhere; Z3A.39 39 weeks gestation of pregnancy; Z37.0 Single live birth; Z88.1 Allergy status to other antibiotic agents; Z88.2 Allergy status to sulfonamides; J45.909 Unspecified asthma, uncomplicated; O99.52 Diseases of the respiratory system complicating childbirth
CPT/HCPCS: 36415; 59025; 59409; 85025; 86592; A9270-GY; J0290; J2300; J2590; J7030; J7120

== ENCOUNTER 2020-09-10 07:01 | Day surgery (SDC) | payer BC ==
[~2020-09-10 07:01] MED LIST: Lidocaine 1%/Sod Bicarbonate in NS 8.4% 1 ML Syringe IDERM PRN; Sodium Chloride 0.9% 10 ML Syringe FLUSH PRN
[2020-09-10] MEDS ORDERED: Lidocaine 1% 4 ML ONE (07:11)
[2020-09-10] MEDS ORDERED: Rocuronium 50 MG/5 ML Vial ONE (07:11)
[2020-09-10] MEDS ORDERED: Ondansetron 4 MG/2 ML SDV ONE (07:11)
[2020-09-10] MEDS ORDERED: Midazolam 1 MG/ML 2 ML SDV ONE (07:11)
[2020-09-10] MEDS ORDERED: fentaNYL 250 MCG/5 ML SDV ONE (07:11)
[2020-09-10] MEDS ORDERED: Propofol 200 MG/20 ML SDV ONE (07:11)
[2020-09-10] MEDS ORDERED: ceFAZolin 1 GM Vial ONE (07:12)
[2020-09-10] MEDS ORDERED: Lidocaine 1% with EPINEPHrine 1:100,000 10 ML MDV ONE (07:24)
[2020-09-10] MEDS ORDERED: Sodium Chloride 0.9% 50 ML SDV ONE (07:24)
[2020-09-10] MEDS: Lactated Ringers 1,000 ML IV SCH ×2 (07:25→12:21)
[2020-09-10] MEDS ORDERED: Albuterol 0.083% 2.5 MG/3 ML Neb Soln ONE (07:34)
--- NOTE | 2020-09-10 07:43 | PCM.PREANE ---
Preanesthetic Assessment - Procedure Proposed Procedure: tvh - Anesthesia/Transfusion/Family Hx Anesthesia History: Prior Anesthesia Without Reaction Family History of Anesthesia Reaction: No Transfusion History: No Prior Transfusion(s) - Review of Systems General: No Symptoms Pulmonary: No Symptoms (asthma) Cardiovascular: No Symptoms Gastrointestinal: No Symptoms Neurological: No Symptoms Other: Reports: None - Physical Assessment NPO Status Date: 09/09/20 NPO Status Time: 22:00 Vital Signs: 123/84 79 95% 16 97.8 Height: 5 ft 6 in Weight: 101.4 kg ASA Class: 2 Mental Status: Alert & Oriented x3 Airway Class: Mallampati = 2 Dentition: Reports: Normal Dentition Thyro-Mental Finger Breadths: 3 Mouth Opening Finger Breadths: 3 ROM/Head Extension: Full Lungs: Clear to Auscultation, Normal Respiratory Effort Cardiovascular: Regular Rate, Regular Rhythm - Lab Values: Laboratory Last Values Urine HCG, Qual Negative (NEGATIVE) 09/10/20 07:07 - Allergies Allergies/Adverse Reactions: Allergies Allergy/AdvReac Type Severity Reaction Status Date / Time cefaclor [From Ceclor] Allergy Itching Verified 09/09/20 17:47 clarithromycin [From Biaxin] Allergy Itching Verified 09/09/20 17:47 Sulfa (Sulfonamide Allergy Itching Verified 09/09/20 17:47 Antibiotics) - Blood Blood Available: Yes - Acknowledgements Anesthesia Type Planned: General Anesthesia Pt an Appropriate Candidate for the Planned Anesthesia: Yes Alternatives and Risks of Anesthesia Discussed w Pt/Guardian: Yes Pt/Guardian Understands and Agrees with Anesthesia Plan: Yes PreAnesthesia Questionnaire HEENT History: Reports: Allergic Rhinitis, Impaired Vision, Other (See Below) Other HEENT History: wears glasses, tear duct surgery Cardiovascular History: Reports: None Respiratory History: Reports: Asthma Gastrointestinal History: Reports: None Genitourinary History: Reports: None [employer] History: Reports: , Other (See Below) Other OB/BYN History: dysmenorrhea, heavy menses, irregular menses, menorrhagia Musculoskeletal History: Reports: None Neurological History: Reports: None Psychiatric History: Reports: Depression Endocrine/Metabolic History: Reports: Diabetes, Gestational Hematologic History: Reports: None Immunologic History: Reports: None Oncologic (Cancer) History: Reports: None Dermatologic History: Reports: None - Infectious Disease History Infectious Disease History: Reports: None 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 - Past Surgical History Head Surgeries/Procedures: Reports: None HEENT Surgical History: Reports: Adenoidectomy, Oral Surgery, Tonsillectomy Cardiovascular Surgical History: Reports: None Respiratory Surgical History: Reports: None GI Surgical History: Reports: None Female Surgical History: Reports: None Male Surgical History: Reports: None Endocrine Surgical History: Reports: None Neurological Surgical History: Reports: None Musculoskeletal Surgical History: Reports: None Oncologic Surgical History: Reports: None Dermatological Surgical History: Reports: None - SUBSTANCE USE Tobacco Use Status *Q: Never Tobacco User Tobacco Use Within Last Twelve Months: No Second Hand Smoke Exposure: No Days Per Week of Alcohol Use: 0 Recreational Drug Use History: No - HOME MEDS Home Medications: Home Meds Albuterol [Ventolin HFA] 1 - 2 puff INH Q4H PRN 09/09/20 [History] Budesonide/Formoterol Fumarate [Symbicort 80-4.5 MCG] 1 puff INH QAM 09/09/20 [History] Levocetirizine Dihydrochloride [Xyzal] 5 mg PO BEDTIME 09/09/20 [History] Montelukast [Singulair] 10 mg PO BEDTIME 09/09/20 [History] - CURRENT (IN HOUSE) MEDS Current Meds: Current Medications Albuterol (Proventil Neb Soln) 2.5 mg NEB ONETIME PRN PRN Reason: asthma Stop: 09/10/20 13:00 Lactated Ringer's (Ringers, Lactated) 1,000 mls @ 125 mls/hr IV ASDIRECTED JUANY Stop: 09/10/20 23:00 Lidocaine/Sodium Bicarbonate (Buffered Lidocaine 1% In Ns 8.4%) 0.25 ml IDERM ONETIME PRN PRN Reason: Prior to IV Start Stop: 09/10/20 18:00 Sodium Chloride (Saline Flush) 10 ml FLUSH ASDIRECTED PRN PRN Reason: Keep Vein Open Stop: 09/10/20 18:00 Discontinued Medications Cefazolin Sodium (Ancef) Confirm Administered Dose 2 gm .ROUTE .STK-MED ONE Stop: 09/10/20 07:13 Fentanyl (Sublimaze) Confirm Administered Dose 250 mcg .ROUTE .STK-MED ONE Stop: 09/10/20 07:12 Lidocaine HCl (Xylocaine-Mpf 1%) Confirm Administered Dose 4 mls @ as directed .ROUTE .STK-MED ONE Stop: 09/10/20 07:12 Lidocaine/Epinephrine (Xylocaine 1% With Epinephrine 1:100,000) Confirm Administered Dose 10 ml .ROUTE .STK-MED ONE Stop: 09/10/20 07:25 Midazolam HCl (Versed 1 Mg/Ml) Confirm Administered Dose 2 mg .ROUTE .STK-MED ONE Stop: 09/10/20 07:12 Ondansetron HCl (Zofran) Confirm Administered Dose 4 mg .ROUTE .STK-MED ONE Stop: 09/10/20 07:12 Propofol (Diprivan 20 Ml) Confirm Administered Dose 200 mg .ROUTE .STK-MED ONE Stop: 09/10/20 07:12 Rocuronium Chrisman (Zemuron) Confirm Administered Dose 50 mg .ROUTE .STK-MED ONE Stop: 09/10/20 07:12 Sodium Chloride (Normal Saline) Confirm Administered Dose 50 ml .ROUTE .STK-MED ONE Stop: 09/10/20 07:25
[2020-09-10] MEDS ORDERED: Dexamethasone 4 MG/ML 5 ML MDV ONE (08:06)
[2020-09-10] MEDS ORDERED: Ondansetron 4 MG/2 ML SDV IVPUSH PRN ×2 (08:19→08:58)
[2020-09-10] MEDS ORDERED: fentaNYL 100 MCG/2 ML SDV IVPUSH PRN (08:19)
[2020-09-10] MEDS ORDERED: HYDROmorphone 0.5 MG/0.5 ML Syringe IVPUSH PRN (08:19)
[2020-09-10] MEDS ORDERED: Ketamine 500 mg/10 ML MDV ONE (08:20)
[2020-09-10] MEDS ORDERED: Lactated Ringers 1,000 ML ONE (08:48)
[2020-09-10] MEDS ORDERED: Acetaminophen/oxyCODONE 325-5 MG Tab PO PRN (08:58)
[2020-09-10] MEDS ORDERED: Ketorolac 30 MG/ML SDV IVPUSH SCH (09:00)
--- NOTE | 2020-09-10 09:05 | PCM.OPNOTE ---
- General Post-Op/Procedure Note Date of Surgery/Procedure: 09/10/20 Operative Procedure(s): Total vaginal hysterectomy with bilateral salpingectomy Findings: Uterus tubes and ovaries appear to be within normal limits as far as size and appearance is concerned. Pre Op Diagnosis: 1. Menorrhagia. 2. Dysmenorrhea. 3. Irregular menses Post-Op Diagnosis: Same Anesthesia Technique: General ET Tube Other Anesthesia Type: Lidocaine quarter percent with [id number] cclocal Primary Surgeon: Adelso Pastrana Secondary Surgeon: Julien Murphy Anesthesia Provider: Shay Albarado Reason Tax Compliance Agent Was Necessary: Assistance, retraction, patient safety, quality of care. Pathology: Uterus, bilateral tubes in one specimen container Fluid Replacement, Intraop: 1,000 EBL in mLs: 40 Complications: None Condition: Good Free Text/Narrative:: Surgery duration: 35 minutes Procedure: The patient was placed in supine position on the operating table. The patient received 2 g of Ancef preoperatively for infection prophylaxis and had sequential compression stockings in place for DVT prophylaxis. General endotracheal anesthesia was accomplished. After positioning, and adequate prep and drape, the procedure was then performed. Sterile speculum was placed in the vagina and cervix was visualized. Cervix was injected with lidocaine quarter percent with epinephrine-20 mL used. A full circumference incision was made in the cervical epithelium. The bladder was pushed well back off cervix. Posterior cul-de-sac was then entered sharply without problems. Left uterosacral was crossclamped with a Enseal vessel closure system. The left uterosacral and then the right uterosacral ligament pedicles were developed using the Enseal system. The anterior cul-de-sac was then entered without problems and the uterine vasculature, cardinal ligament and broad ligament then developed using Enseal vessel closure system. The uterus was inverted at this time and upper broad ligament fallopian tube pedicles were crossclamped with Donna clamps. Specimen was totally removed. Both these pedicles were then secured with Enseal vessel closure system. These were left in place per patient desire. They were normal reproductive appearance. Left and right fallopian tube was normal in appearance.. Using Enseal vessel closure system each of the tubes was then removed and sent with the specimen. The patient was found to be hemostatically intact at this time. Vaginal cuff was sutured for hemostatic reasons with a running locked suture of 0 Monocryl from the 2 o'clock position to the 10 o'clock position posteriorly. Vaginal cuff was then closed from right to left side with a running locked suture of 0 Monocryl. Patient was returned to supine position and awakened from general endotracheal anesthesia. She tolerated the procedure and left the operating room in satisfactory condition.
--- NOTE | 2020-09-10 09:17 | PCM.POSTAN ---
POST ANESTHESIA ASSESSMENT - MENTAL STATUS Mental Status: Somnolent - VITAL SIGNS Vital Signs: Last Vital Signs Temp 97.8 F 09/10/20 07:15 Pulse 79 09/10/20 07:15 Resp 16 09/10/20 07:15 BP 123/84 09/10/20 07:15 Pulse Ox 97 09/10/20 07:47 0912 119/55 90 15 97.8 94% - RESPIRATORY Respiratory Status: Respiratory Rate WNL, Airway Patent, O2 Saturation Stable, Supplemental Oxygen - CARDIOVASCULAR CV Status: Pulse Rate WNL, Blood Pressure Stable - GASTROINTESTINAL GI Status: No Symptoms - PAIN Pain Score: 0 (sleepy) - POST OP HYDRATION Hydration Status: Adequate & Stable
[2020-09-10] MEDS ORDERED: Albuterol 0.083% 2.5 MG/3 ML Neb Soln NEB PRN (09:57)
--- NOTE | 2020-09-10 13:01 | PCM48HPAN ---
Post Anesthesia Note - EVALUATION WITHIN 48HRS OF ANESTHETIC Vital Signs in Normal Range: Yes Patient Participated in Evaluation: Yes Respiratory Function Stable: Yes Airway Patent: Yes Cardiovascular Function Stable: Yes Hydration Status Stable: Yes Pain Control Satisfactory: Yes Nausea and Vomiting Control Satisfactory: Yes Mental Status Recovered: Yes Vital Signs: Last Vital Signs Temp 99.1 F 09/10/20 12:29 Pulse 78 09/10/20 12:29 Resp 16 09/10/20 12:29 BP 109/60 09/10/20 12:29 Pulse Ox 94 L 09/10/20 12:29 - COMMENTS/OBSERVATIONS Free Text/Narrative:: No complaints. Patient states she is doing amazing.
[2020-09-10 14:22] VITALS: BP 110/64; PULSE 68
[2020-09-10] MEDS ORDERED: Non-Formulary Medication 1 Each (Levocetirizine Dihydrochloride [Xyzal] 5 MG) PO SCH (21:00)
[2020-09-10] MEDS ORDERED: Montelukast 10 MG Tab PO SCH (21:00)
[2020-09-11] MEDS ORDERED: Non-Formulary Medication 1 Each (Budesonide/Formoterol Fumarate 1 PUFF) INH SCH (08:00)
== END 2020-09-10 13:25 | disposition home or self-care (01) ==
LOC: JD.SDS 07:01
PROVIDERS: ATTEND Obstetrics & Gynecology
DX: N72 Inflammatory disease of cervix uteri (principal); N92.6 Irregular menstruation, unspecified; N92.0 Excessive and frequent menstruation with regular cycle; N94.6 Dysmenorrhea, unspecified; J45.909 Unspecified asthma, uncomplicated; Z01.812 Encounter for preprocedural laboratory examination; Z20.822 Contact with and (suspected) exposure to COVID-19; Z88.1 Allergy status to other antibiotic agents; Z88.2 Allergy status to sulfonamides; Z88.8 Allergy status to other drugs, medicaments and biological substances; Z79.899 Other long term (current) drug therapy; Z98.890 Other specified postprocedural states
CPT/HCPCS: 36415; 58262; 81025; 86850; 86900; 86901; 87635; 94640; A9270; J0690; J1100; J1170; J2250; J2405; J2704; J2710; J3010; J7120; 00944; U0002